=== PATIENT | female | born 1985 | race Caucasian/White ===

== ENCOUNTER 2018-08-31 01:46 | Emergency (ER) | payer BC ==
[~2018-08-31] VITALS: Ht 170.2 cm; Wt 111.4 kg
[2018-08-31 02:08] VITALS: Ht 170.2 cm; Wt 111.4 kg
[2018-08-31] MEDS ORDERED: CIPRO500 MG PO (02:09)
[2018-08-31] MEDS ORDERED: CELEXA10 MG PO (02:12)
[2018-08-31] MEDS ORDERED: PRINIVIL10 MG PO (02:12)
[2018-08-31 02:46] LABS: BASOPHILS 0.1 % (0-2); EOSINOPHILS 0.1 % (0-7); HEMATOCRIT 39.6 % (36.0-48.0); HEMOGLOBIN 12.8 g/dL (12-16); IMMATURE GRANULOCYTES 0.2 % (0-5); LYMPHOCYTES 12.3 % (15-50); MCH 27.8 pg (26.0-34.0); MCHC 32.3 g/dL (31.0-37.0); MCV 85.9 fL (80.0-100.0); MEAN PLATELET VOLUME 11.3 fL (7.4-10.4); MONOCYTES 4.8 % (2-11); NEUTROPHILS 82.5 % (40-80); PLATELET COUNT 181 10x3/uL (130-400); RBC 4.61 10x6/uL (4.00-5.40); WBC 10.1 10x3/uL (4.8-10.8)
[2018-08-31 02:49] LABS: HCG SERUM NEGATIVE (NEGATIVE)
[2018-08-31 03:02] LABS: ALBUMIN 3.9 g/dL (3.4-5.0); ANION GAP 10.6 mmol/L (8-16); BILIRUBIN - TOTAL 0.71 mg/dL (0.2-1.3); CALCIUM 8.7 mg/dL (8.5-10.1); CARBON DIOXIDE 27.7 mmol/L (21.0-32.0); POTASSIUM - SERUM 3.3 mmol/L (3.5-5.1); PROTEIN - SERUM 7.9 g/dL (6.4-8.2)
[2018-08-31 03:13] LABS: AMORPHOUS SEDIMENT >1+ /lpf (NONE SEEN); APPEARANCE TURBID (CLEAR); BACTERIA FEW /hpf (NONE SEEN); BILIRUBIN NEGATIVE (NEGATIVE); COLOR YELLOW (YELLOW); EPITHELIAL CELLS 0-5 /hpf (0-5); GLUCOSE NEGATIVE (NEGATIVE); KETONE SMALL mg/dL (NEGATIVE); NITRITE NEGATIVE (NEGATIVE); PROTEIN TRACE mg/dL (NEGATIVE); RED CELLS - URINE 0-5 /hpf (0-5); UROBILINOGEN NORMAL (NORMAL)
[2018-08-31] MEDS ORDERED: KEFLEX500 MG PO (03:43)
[2018-08-31] MEDS ORDERED: MACROBID100 MG PO (03:43)
[2018-08-31 04:36] VITALS: BP 140/96
== END 2018-08-31 04:36 | disposition home or self-care (01) ==
LOC: D.ER 01:46
PROVIDERS: Family Medicine
DX: N30.90 Cystitis, unspecified without hematuria (principal)